=== PATIENT | male | born 1985 | race Caucasian/White ===

== ENCOUNTER 2017-07-10 16:07 | Emergency (ER) | payer BC, MEDICAID ==
[~2017-07-10] VITALS: Ht 172.7 cm; Wt 81.4 kg
[~2017-07-10 16:07] MED LIST: "\\\"BLOOD PRESSURE MED\\\"" PO; ATAZ100C; BUPR100T6; EMTR1TAB8; FLUO25PO; QUET100T4; RITO100C
[2017-07-10 16:16] VITALS: BP 113/78
[2017-07-10] MEDS ORDERED: BUPIVACAINE 0.25% ONE (17:57)
[2017-07-10] MEDS ORDERED: LIDOCAINE 1%, 10ML ONE (17:57)
[2017-07-10] MEDS ORDERED: LIDOCAINE 1%, 20ML SQ ONE (18:00)
[2017-07-10] MEDS ORDERED: BUPIVACAINE/PF-EPI 0.25% 1:200K SQ ONE (18:00)
== END 2017-07-10 20:35 | disposition home or self-care (01) ==
LOC: ED 20:16
DX: S62.612A Displaced fracture of proximal phalanx of right middle finger, initial encounter for closed fracture (principal); G89.29 Other chronic pain; X58.XXXA Exposure to other specified factors, initial encounter; Y93.89 Activity, other specified; Y92.89 Other specified places as the place of occurrence of the external cause; Y99.8 Other external cause status
CPT/HCPCS: 26770; 99284